=== PATIENT | male | born 1990 | race Caucasian/White ===

== ENCOUNTER 2018-12-21 07:10 | Emergency (ER) | payer BC, SELFPAY ==
[2018-12-21] MEDS ORDERED: Ketorolac Tromethamine 30 MG/ML VIAL ONE (07:51)
[2018-12-21 07:59] LABS: #Lymphocytes 1.5 thou/uL (1.20-3.40); #Monocytes 0.4 thou/uL (0.11-0.59); #Neutrophils 3.9 thou/uL (1.40-6.50); %Basophils 0.7 % (0.0-1.0); %Eosinophils 14.7 % (0.0-10.0); %Lymphocytes 21.3 % (21.0-51.0); %Monocytes 6.2 % (0.0-10.0); %Neutrophils 57.2 % (42.0-75.0); Hemoglobin 15.3 g/dL (14.0-18.0); Mean Corpuscular HGB CONC 33.7 g/dL (32.0-36.0); Mean Corpuscular Hemoglobin 31.7 pg (27.0-31.0); Mean Corpuscular Volume 94.1 fL (78.0-98.0); Mean Platelet Volume 6.6 fL (7.4-10.4); Platelet Count 314 thou/uL (130-400); RBC Distribution Width 10.9 % (11.5-14.5); Red Blood Cell (RBC) Count 4.83 mill/uL (4.70-6.10); White Blood Cell (WBC) Count 6.8 thou/uL (4.8-10.8)
[2018-12-21 08:21] LABS: ALT (SGPT) 23 U/L (8-55); AST (SGOT) 28 U/L (5-34); Albumin 4.7 g/dL (3.5-5.0); Alkaline Phosphatase 62 U/L (40-110); Anion Gap 13 mmol/L (10-20); BUN (Urea Nitrogen) 8 mg/dL (8.9-20.6); Bilirubin, Total 0.3 mg/dL (0.2-1.2); Calc. Creatinine Clearance 0 mL/min (70-130); Calcium 9.7 mg/dL (7.8-10.44); Carbon Dioxide 26 mmol/L (22-29); Chloride 102 mmol/L (98-107); Estimated GFR-MDRD 80; Globulin 2.7 g/dL (2.4-3.5); Glucose 98 mg/dL (70-105); Lipase 29 U/L (8-78); Protein, Total 7.4 g/dL (6.0-8.3); Sodium 137 mmol/L (136-145)
--- NOTE | 2018-12-21 08:29 | CT ---
CT ABDOMEN NONCONTRAST CT PELVIS NONCONTRAST: (Urolithiasis protocol) DATE: 12/21/2018 HISTORY: 28-year-old male with bilateral flank pain, right worse than left. COMPARISON: None available TECHNIQUE: IV injection of iodinated contrast media: None Oral contrast media: None FINDINGS: Other than for urolithiasis, the lack of IV and oral contrast limits the evaluation. Relative lack of visceral fat makes it difficult to follow the ureters. At the upper S1 level, there is a vertically oriented calcific density close to right iliac vessels measuring approximately 6 mm craniocaudal x 2 mm AP x 1 mm transverse. Although the linear configuration is suggestive of vascular calcification, that would be unusual in a patient of age 28 years. Instead, this could represent a ureteral calculus or 2 or more tiny ureteral calculi stacked on top of each other. Superior to this, there is mild right hydroureter and mild right hydronephrosis. There are several calculi in the bilateral renal collecting systems, left more than right, on the order of 2 to 3 mm in size each. No left-sided hydronephrosis. No perinephric edema. Within the limitations of a noncontrast scan, no obvious pathology is identified involving abdominal aorta, liver, spleen, adrenals, pancreas, urinary bladder. No small bowel dilation. No signs of colonic diverticulitis. No ascites or pneumoperitoneum. Lung bases are grossly clear except for small focal scar or infiltrate in the lingula. Lumbar vertebral body heights are maintained. IMPRESSION: 1) mild right hydronephrosis, probably due to calculi or calculus in distal right ureter at S1 level. 2) bilateral nephrolithiasis.
[2018-12-21 08:39] LABS: Bilirubin Negative (Negative); Blood, Urine 2+ (Negative); Clarity Clear (Clear); Glucose, Urine (Dipstick) Normal (Negative); Leukocyte Negative Leu/uL (Negative); Nitrite Negative (Negative); Protein, Urine (Dipstick) Negative (Neg-Trace); RBC/HPF Greater than 50 HPF (0-3); Squamous Epithelial None Seen HPF (0-3); Urobilinogen Normal mg/dL (Less than 2)
[2018-12-21 08:42] LABS: Bacteria/HPF 1+ HPF (None Seen)
[2018-12-21] MEDS ORDERED: cefTRIAXone\\ROCEPHIN 2 GM VIAL ONE (10:01)
[2018-12-21] MEDS ORDERED: Sodium Chloride 0.9% 100 ML ONE (10:02)
--- NOTE | 2018-12-21 13:18 | CON ---
DATE OF CONSULTATION: 12/21/2018 PRIMARY CARE PHYSICIAN: None. REASON FOR CONSULT: Right ureteral calculi with hydronephrosis. HISTORY OF PRESENT ILLNESS: Mr. Morrison is a 28-year-old male with no significant past medical history nor surgical history, who presents with 3-to 4-day history of vague lower back pain with progression, therefore presented to the emergency room. He denies dysuria, gross hematuria, obstructive urinary symptoms, fever, or chills. He also denies prior history of kidney stones, neurosurgical or urologic evaluation. He states that he is sexually active with multiple partners, history of Chlamydia, which he relates that was treated a few years ago. He denies split stream or obstructive urinary symptoms. Currently, he is resting comfortably after Toradol provided 15mg x1. CT of the abdomen and pelvis, which I reviewed myself, demonstrates multiple bilateral renal calculi punctate to 2 mm in size. There is a right 2 x 1 mm ureteral calculi at the level of the S1, I reviewed the CT myself as the radiologist's read as a 6 mm in craniocaudal dimension. It is linear, 6 mm, however transverse dimension is only 1 to 2 mm. Currently, he is resting comfortably. He does have prior history of vague left lower quadrant discomfort , which is likely consistent with spontaneous passage of kidney stones in the past. He also relates that he is sexually active with multiple partners, relates questionable genital herpes in the past. Denies HIV, illicit drug use, however, records indicate that he routinely uses marijuana. Denies HIV or hepatitis. PAST MEDICAL HISTORY: None. PAST SURGICAL HISTORY: None. SOCIAL HISTORY: Sexually active with multiple partners, marijuana use, tobacco abuse, 3 to 4 beers 4 to 5 times a week. He states that he works for a [employer]. ALLERGIES: NO KNOWN DRUG ALLERGIES. SOCIAL HISTORY: As above, otherwise noncontributory. REVIEW OF SYSTEMS: Ten-point review of systems as above, but otherwise noncontributory. PHYSICAL EXAMINATION: VITAL SIGNS: Stable. He is afebrile. GENERAL: The patient appears to be in no acute distress. HEENT: Unremarkable. HEART: Regular rate. LUNGS: Clear. ABDOMEN: Soft, nontender, and nondistended. No CVA tenderness. GENITOURINARY: Demonstrates circumcised phallus. Meatus is grossly unremarkable. 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 They are small about 3 mm. There is no evidence of perianal, perineal, or scrotal lesions of concern. Testes are descended with no evidence of intratesticular mass. EXTREMITIES: No cyanosis, clubbing, or edema. NEUROLOGIC: No gross focal deficits. PSYCHIATRIC: Appears to be appropriate and intact. PERTINENT LABORATORY DATA: White count 6.8, hemoglobin 15, and platelet 314. Creatinine is 1.1. Calcium 9.7, which is normal. UA demonstrates yellow clear, negative nitrites, negative leukocytes, greater than 50 rbc's, 7 to 10 wbc's, no epithelials, 1+ bacteria. Culture has been obtained by the emergency room. CT of the abdomen and pelvis, which I reviewed myself, demonstrating mild right hydroureteronephrosis, at the level of distal right S1 ureter. There is a 1 x 2 mm calcific density, only in the craniocaudal dimension that it measure 6 mm, appears to be linear and small. The bladder is grossly unremarkable. IMPRESSION AND PLAN: 1. Mr. Morrison is a 28-year-old male with no significant past medical history with marijuana, tobacco abuse, history of Chlamydia in the remote past, incidental genital condyloma, presents with right hydronephrosis, mild due to mid ureteral calculi. I informed the patient that given the stone size, we can certainly watch in for medical expulsion therapy. However, he has 1+ bacteria, therefore I did offer the patient for cysto stent. The possibility of pyelonephritis/sepsis presenting with partially obstructing ureteral stone was reviewed with him in detail. I did inform the patient to consider cysto stent and treatment of his stone at a later time, which he declined. As such, I think it is reasonable for a close followup with urine culture, broad-spectrum antibiotics, Flomax, pain medication and informed to call me for an appointment in the near future. Rocephin 2 g provided by the emergency room per my request. 2. I advised the patient regarding treatment of genital condyloma, and protection of his sexual partners advised. Job ID: [id number]
== END 2018-12-21 10:25 | disposition home or self-care (01) ==
LOC: ERS 07:10
DX: N13.2 Hydronephrosis with renal and ureteral calculous obstruction (principal); J45.909 Unspecified asthma, uncomplicated; F17.200 Nicotine dependence, unspecified, uncomplicated
CPT/HCPCS: 74176; 80053; 81003; 81015; 83690; 85025; 87086; 96361; 96374; 96375; J0696; J1885; J3490

== ENCOUNTER 2018-12-21 18:04 | Emergency (ER) | payer SELFPAY ==
[2018-12-21] MEDS ORDERED: Ondansetron PF 4 MG/2 ML Vial ONE (18:26)
[2018-12-21 19:00] LABS: #Basophils 0.1 thou/uL (0.0-0.2); #Eosinphils 1.3 thou/uL (0.0-0.7); #Lymphocytes 2.4 thou/uL (1.20-3.40); #Monocytes 0.8 thou/uL (0.11-0.59); #Neutrophils 4.4 thou/uL (1.40-6.50); %Eosinophils 14.8 % (0.0-10.0); %Lymphocytes 26.3 % (21.0-51.0); Hemoglobin 15.4 g/dL (14.0-18.0); Mean Corpuscular HGB CONC 34.1 g/dL (32.0-36.0); Mean Corpuscular Hemoglobin 32.2 pg (27.0-31.0); Mean Corpuscular Volume 94.5 fL (78.0-98.0); Mean Platelet Volume 6.8 fL (7.4-10.4); Platelet Count 325 thou/uL (130-400); RBC Distribution Width 11.1 % (11.5-14.5); Red Blood Cell (RBC) Count 4.78 mill/uL (4.70-6.10); White Blood Cell (WBC) Count 9.1 thou/uL (4.8-10.8)
[2018-12-21] MEDS ORDERED: Morphine 4 MG/ML VIAL ONE ×2 (19:03→21:47)
[2018-12-21 19:27] LABS: ALT (SGPT) 23 U/L (8-55); AST (SGOT) 33 U/L (5-34); Albumin 4.4 g/dL (3.5-5.0); Alkaline Phosphatase 59 U/L (40-110); Anion Gap 14 mmol/L (10-20); BUN (Urea Nitrogen) 11 mg/dL (8.9-20.6); Bilirubin, Total 0.7 mg/dL (0.2-1.2); Calc. Creatinine Clearance 0 mL/min (70-130); Calcium 9.5 mg/dL (7.8-10.44); Carbon Dioxide 25 mmol/L (22-29); Chloride 102 mmol/L (98-107); Estimated GFR-MDRD 72; Globulin 3.1 g/dL (2.4-3.5); Glucose 118 mg/dL (70-105); Potassium 4.1 mmol/L (3.5-5.1); Protein, Total 7.5 g/dL (6.0-8.3); Sodium 137 mmol/L (136-145)
[2018-12-21 20:12] LABS: Bilirubin Negative (Negative); Blood, Urine 2+ (Negative); Clarity Clear (Clear); Glucose, Urine (Dipstick) Normal (Negative); Leukocyte Negative Leu/uL (Negative); Mucous/LPF Rare LPF (<2+); Nitrite Negative (Negative); Protein, Urine (Dipstick) 20 mg/dL (Neg-Trace); RBC/HPF Greater than 50 HPF (0-3); Squamous Epithelial None Seen HPF (0-3); Urobilinogen Normal mg/dL (Less than 2)
[2018-12-21 20:27] LABS: Bacteria/HPF None Seen HPF (None Seen); Sperm/HPF 3+ HPF (None Seen)
[2018-12-21] MEDS ORDERED: Ketorolac Tromethamine 30 MG/ML VIAL ONE (21:48)
== END 2018-12-21 21:59 | disposition home or self-care (01) ==
LOC: ERS 18:04
DX: N23 Unspecified renal colic (principal); J45.909 Unspecified asthma, uncomplicated; F17.200 Nicotine dependence, unspecified, uncomplicated
CPT/HCPCS: 87086; 96361; 96374; 96375; J1885; J2270; J2405

== ENCOUNTER 2021-04-17 20:43 | Emergency (ER) | payer SELFPAY ==
[2021-04-17] MEDS ORDERED: Mag-Al 1200 mg/1200 mg/30 ML UDCUP ONE (21:18)
[2021-04-17] MEDS ORDERED: Lidocaine Viscous Sol 2% 15 ml UD Cup ONE (21:25)
[2021-04-17] MEDS ORDERED: Sucralfate 1 GM/10 ML UDCUP ONE (22:58)
== END 2021-04-17 23:02 | disposition home or self-care (01) ==
LOC: ERS 20:43
DX: K29.70 Gastritis, unspecified, without bleeding (principal); J45.909 Unspecified asthma, uncomplicated; F17.210 Nicotine dependence, cigarettes, uncomplicated
CPT/HCPCS: 71045; 93005

== ENCOUNTER 2021-07-13 13:23 | Emergency (ER) | payer BC, SELFPAY ==
[2021-07-13] MEDS ORDERED: Dexamethasone 4 MG TAB ONE (14:03)
== END 2021-07-13 14:43 | disposition home or self-care (01) ==
LOC: ERS 13:23
DX: J45.901 Unspecified asthma with (acute) exacerbation (principal); F17.210 Nicotine dependence, cigarettes, uncomplicated; Z79.51 Long term (current) use of inhaled steroids
CPT/HCPCS: 71045; 94640; J7620; J8540

== ENCOUNTER 2022-03-20 20:09 | Emergency (ER) | payer BC ==
[2022-03-20] MEDS ORDERED: Morphine 4 MG/ML VIAL ONE (20:20)
[2022-03-20] MEDS ORDERED: Boostrix 0.5 ML (Tdap) VIAL (>/=7 yrs of age) ONE (20:28)
[2022-03-20] MEDS ORDERED: Lidocaine 1% PF 5 ML VIAL ONE (21:13)
[2022-03-20] MEDS ORDERED: Bacitracin 1 PK ONE ×2 (22:20)
== END 2022-03-20 22:19 | disposition home or self-care (01) ==
LOC: ERS 20:09
DX: H10.213 Acute toxic conjunctivitis, bilateral (principal); S01.81XA Laceration without foreign body of other part of head, initial encounter; S61.412A Laceration without foreign body of left hand, initial encounter; X58.XXXA Exposure to other specified factors, initial encounter; F17.210 Nicotine dependence, cigarettes, uncomplicated; Z23 Encounter for immunization
CPT/HCPCS: 12011; 70450; 90471; 90715; 96374; J2270

== ENCOUNTER 2025-03-04 16:44 | Emergency (ER) | payer BC, OTHER ==
[2025-03-04 17:17] LABS: #Basophils 0.07 10x3/uL (0.0-0.2); #Eosinophils 0.34 10x3/uL (0.0-0.7); #Monocytes 0.53 10x3/uL (0.11-0.59); #Neutrophils 9.21 10x3/uL (1.40-6.50); %Basophils 0.6 % (0.0-1.0); %Eosinophils 3.0 % (0.0-10.0); %Lymphocytes 9.4 % (21.0-51.0); %Monocytes 4.7 % (0.0-10.0); %Neutrophils 82.0 % (42.0-75.0); Hematocrit 45.9 % (42.0-52.0); Hemoglobin 15.9 g/dL (14.0-18.0); Mean Corpuscular Hemoglobin 29.7 pg (27.0-31.0); Mean Corpuscular Volume 85.6 fL (78.0-98.0); Platelet Count 272 10x3/uL (130-400); Red Blood Cell (RBC) Count 5.36 mill/uL (4.70-6.10); White Blood Cell (WBC) Count 11.24 10x3/uL (4.8-10.8)
[2025-03-04 17:19] LABS: Bacteria/HPF None Seen HPF (None Seen); CAUTI Indications for Culture Pelvic or flank pain; Glucose, Urine (Dipstick) Normal (Negative); Leukocyte Negative Leu/uL (Negative); Protein, Urine (Dipstick) 10 mg/dL (Neg-Trace); Specific Gravity, Urine 1.021 (1.002-1.036); WBC/HPF 0-3 HPF (0-3)
[2025-03-04] MEDS ORDERED: Acetaminophen 500 MG TAB ONE (17:21)
[2025-03-04] MEDS ORDERED: Ketorolac Tromethamine 30 MG (1 mL) VIAL ONE (17:22)
[2025-03-04 17:28] LABS: Urine Culture Reflex No No
[2025-03-04 17:34] LABS: ALT (SGPT) 48 U/L (Less than 45); AST (SGOT) 28 U/L (11-34); Albumin 4.5 g/dL (3.1-4.5); Alkaline Phosphatase 78 U/L (40-110); Anion Gap 11 mmol/L (10-20); BUN (Urea Nitrogen) 15 mg/dL (8.9-20.6); Bilirubin, Total 0.5 mg/dL (0.3-1.2); Calc. Creatinine Clearance 0 mL/min (70-130); Calcium 9.3 mg/dL (7.8-10.44); Carbon Dioxide 26 mmol/L (22-29); Chloride 102 mmol/L (98-107); Globulin 3.1 g/dL (2.4-3.5); Glucose 105 mg/dL (70-105); Lipase 48 U/L (8-78); Potassium 4.0 mmol/L (3.5-5.1); Sodium 135 mmol/L (136-145)
== END 2025-03-04 18:55 | disposition home or self-care (01) ==
LOC: EEVIPCON 16:44 → ERS 16:44
DX: N13.2 Hydronephrosis with renal and ureteral calculous obstruction (principal); R31.29 Other microscopic hematuria; R79.89 Other specified abnormal findings of blood chemistry; J45.909 Unspecified asthma, uncomplicated; F17.210 Nicotine dependence, cigarettes, uncomplicated; F17.290 Nicotine dependence, other tobacco product, uncomplicated; Z79.51 Long term (current) use of inhaled steroids; Z79.899 Other long term (current) drug therapy; Z55.6 Problems related to health literacy
CPT/HCPCS: 74176; 80053; 81001; 83690; 85025; 96374; J1885